=== PATIENT | male | born 2000 | race Caucasian/White ===

== ENCOUNTER 2021-06-08 11:08 | Emergency (ER) | payer OTHER ==
[~2021-06-08] VITALS: Ht 175 cm; Wt 70.3 kg
[2021-06-08] MEDS ORDERED: IBUPROFEN 800 MG (MOTRIN) TAB PO ONE ×2 (11:30→11:31)
--- NOTE | 2021-06-08 11:44 | ED Cough/URI ---
General Chief Complaint: COVID19 Suspect/Confirmed Stated Complaint: FEVER/COUGH Nursing Triage Note: PT PRESENTS TO ED WITH COMPLAITNS OF FEVER AND COUGH SINCE THURSDAY. PT STATES HE TOOK 2 TYLENOL AT 1000 THIS AM. Source: patient Exam Limitations: no limitations History of Present Illness Date Seen by Provider: Jun 08, 2021 Time Seen by Provider: 11:26 Initial Comments Here with report of fever and cough for the last 2 days. He has been in school in [place] and is here visiting grandparents. He has been vaccinated for Covid in October. He has not been vaccinated for influenza this year. Has had fever, body aches, cough and mild runny nose. He did take a couple of Tylenol at 10 AM this morning and that is helped a little. Denies other symptoms. Timing/Duration: constant Severity/Quality: mild, dry cough Modifying Factors: Improves With Rest Associated Symptoms: cough, fever/chills, muscle aches, nasal congestion Allergies and Home Medications Allergies Coded Allergies: No Known Drug Allergies (Unverified , 06/08/21) Patient Home Medication List Home Medication List Reviewed: Yes Review of Systems Review of Systems Constitutional: No chills; fever EENTM: nose congestion; No throat pain Respiratory: No short of breath, No wheezing Cardiovascular: no symptoms reported Gastrointestinal: No diarrhea, No vomiting Musculoskeletal: No joint pain; muscle pain Skin: no symptoms reported Past Kymywer-[id number]-[id number] Hx Patient Social History Tobacco Use?: No Substance use?: No Alcohol Use?: Yes Alcohol type: Beer Alcohol Frequency: Several times a month Pt feels they are or have been: No Immunizations Up To Date First/Initial COVID19 Vaccinat: SEPTEMBER 2020 Second COVID19 Vaccination Lencho: OCTOBER 2020 Past Medical History Surgery/Hospitalization HX: SX: TONSILS/WISDOM TEETH Surgeries: No Respiratory: No Cardiac: No Neurological: No Physical Exam Vital Signs - First Documented 06/08/21 11:32 Temp 38.0 Pulse 101 Resp 18 B/P (MAP) 130/76 (94) Pulse Ox 98 Capillary Refill : Less Than 3 Seconds Height: '" Weight: lbs. oz. kg; 22.00 BMI Method: General Appearance: WD/WN, no apparent distress HEENT: PERRL/EOMI, pharyngeal erythema, other (Mild clear rhinorrhea and nasal congestion) Neck: full range of motion, supple, normal inspection Respiratory: lungs clear, normal breath sounds Cardiovascular: no murmur, tachycardia Gastrointestinal: non tender, soft Neurologic/Psychiatric: alert, oriented x 3 Skin: normal color, warm/dry Progress/Results/Core Measures Suspected Sepsis SIRS Temperature: Pulse: 101 Respiratory Rate: 18 Blood Pressure 130 /76 Mean: 94 Results/Orders Lab Results Laboratory Tests Test 06/08/21 11:25 Range/Units Influenza Type A (RT-PCR) Detected H Not Detecte Influenza Type B (RT-PCR) Not Detected Not Detecte SARS-CoV-2 RNA (RT-PCR) Not Detected Not Detecte My Orders Orders - PEDRO MANJARREZ MD Ibuprofen Tablet (Motrin Tablet) (06/08/21 11:31) Medications Given in ED Current Medications Medications Dose Ordered Sig/Janice Route Start Time Stop Time Status Last Admin Dose Admin Ibuprofen 800 mg ONCE ONCE PO 06/08/21 11:30 06/08/21 11:32 DC 06/08/21 11:38 800 MG Vital Signs/I&O 06/08/21 11:32 Temp 38.0 Pulse 101 Resp 18 B/P (MAP) 130/76 (94) Pulse Ox 98 Capillary Refill : Less Than 3 Seconds Blood Pressure Mean: 94 Progress Note : Progress Note Seen and evaluated. Influenza and Covid screen initiated. Ibuprofen 800 mg p.o. Monitor patient. 1157: Influenza A positive Covid negative. Discharged home with return precautions. Patient verbalized understanding of instructions and agreement with plan. Departure Impression Primary Impression: Influenza A Disposition: 01 HOME, SELF-CARE Condition: Stable Departure-Patient Inst. Decision time for Depature: 11:57 Patient Instructions: Flu, Adult (DC) Add. Discharge Instructions: All discharge instructions reviewed with patient and/or family. Voiced understanding. You have influenza A. You should minimize contact with others until you are fever free for 24 hours without fever chief nursing officer medicines. You may take Tylenol/acetaminophen 1000 mg every 8 hours as needed for fever or pain. You may take ibuprofen 600 mg every 8 hours as needed for fever or pain. Follow-up with your DrMiles in a few days for recheck. Drink plenty of fluids and get plenty of r est. Eat as tolerated.. Return for worse pain, fever, vomiting, weakness, breathing problems or other concerns as needed. PEDRO MANJARREZ MD Jun 08, 2021 11:44
[2021-06-08 12:00] VITALS: BP 130/76
== END 2021-06-08 12:00 | disposition home or self-care (01) ==
LOC: ER 11:10
DX: J10.1 Influenza due to other identified influenza virus with other respiratory manifestations (principal); Z20.822 Contact with and (suspected) exposure to COVID-19
CPT/HCPCS: 87636; 99283